=== PATIENT | female | born 1955 | race Caucasian/White ===

== ENCOUNTER 2023-05-27 10:44 | Emergency (ER) | payer MEDICARE | END 2023-05-27 12:35 | disposition home or self-care (01) | LOC: MADERS 10:44 | DX: S92.511A Displaced fracture of proximal phalanx of right lesser toe(s), initial encounter for closed fracture (principal); E11.9 Type 2 diabetes mellitus without complications; Z79.84 Long term (current) use of oral hypoglycemic drugs; W22.8XXA Striking against or struck by other objects, initial encounter | CPT/HCPCS: 29515 ==